=== PATIENT | male | born 1975 | race Caucasian/White ===

== ENCOUNTER 2019-07-22 10:18 | Emergency (ER) | payer BC ==
--- OUTSIDE RECORDS SUMMARY | 2019-07-22 10:34 | XMS REPORT | Continuity of Care Document ---
:1975 Author Organization [facility] Care Team Providers Name Role Phone [facility] Unavailable Un available Problems Problem Status Onset Classification Date Comments Sourc e Date Reported Headache Active Problem 05/09/2019 Mischer (finding) Neuro Neck pain Active Problem 05/09/2019 [facility] (finding) Neuro Dizziness Active Problem 10/29/2018 [facility] (finding) Neuro Cervical Active Problem 05/09/2019 [facility] radiculopathy Neuro (disorder) Cervical Active Problem 05/09/2019 [facility] spondylosis Neuro (disorder) Medications Medication Details Route Status Patient Ordering Order Source Instructions Provider Date amitriptyline 10 mg 20 mg = 2 Active Mi allie oral tablet tab, PO, 020 Neuro Bedtime, # 60 tab, 2 Refill(s) , Pharmacy: [id number] tizanidine 2 MG 4 mg = 2 Active Mischer Oral Capsule cap, PO, 019 Neuro [Zanaflex] Bedtime, # 60 cap, 3 Refill(s) , Pharmacy: [id number] montelukast PRN, 0 Active Mischer Refill(s) 019 Neuro Zolpidem tartrate 5 5 mg = 1 Inactive Mi allie MG Oral Tablet tab, PO, 019 Neuro [Ambien] Bedtime, PRN for sleep, 0 Refill(s) meloxicam 15 mg 15 mg = 1 Inactive Misch er oral tablet tab, PO, 019 Neuro Daily, # 30 tab, 0 Refill(s) vortioxetine 20 MG 20 mg = 1 Inactive Mi allie Oral Tablet tab, PO, 019 Neuro [Trintellix] Daily, 0 Refill(s) 24 HR Amphetamine 30 mg = 1 Inactive Mis ginette aspartate 7.5 MG / cap, PO, 019 Neur o Amphetamine Sulfate Daily, # 7.5 MG / 30 cap, 0 Dextroamphetamine Refill(s) saccharate 7.5 MG / Dextroamphetamine Sulfate 7.5 MG Extended Release Capsule [Adderall] gabapentin 300 MG 300 mg = Inactive Misc her Oral Capsule 1 cap, 019 Neuro PO, TID, 0 Refill(s) QUEtiapine 300 mg 300 mg = Inactive Misc her oral tablet 1 tab, 019 Neuro PO, Bedtime, # 30 tab, 0 Refill(s) Prilosec PO, Active Mischer Daily, 0 019 Neuro Refill(s) montelukast Daily, 0 Active Mischer Refill(s) 019 Neuro Flora PO, 0 Active Mischer Refill(s) 019 Neuro Allergies, Adverse Reactions, Alerts Substance Category Reaction Severity Reaction Status Date Comments S ource type Reported No Known Assertion Drug Misch er Medication allergy Neuro Allergies Immunizations No Data Provided for This Section Results No Data Provided for This Section Pathology Reports No Data Provided for This Section Diagnostic Reports No Data Provided for This Section Consultation Notes No Data Provided for This Section Discharge Summaries No Data Provided for This Section History and Physicals No Data Provided for This Section Vital Signs Vital Sign Value Date Comments Source Systolic (mm Hg) 123 [facility]04[facility] Diastolic (mm Hg) 82 03/04/2019 [facility] Ne uro Heart Rate 78 03/04/2019 [facility] Neuro Respitory Rate 16 03/04/2019 [facility] Neuro Height 165.1 cm 03/04/2019 [facility] Neuro Weight 75.455 03/04/2019 [facility] Neuro BMI Calculated 27.68 03/04/2019 [facility] Neuro Systolic (mm Hg) 130 01/14/2019 [facility] Rita ro Diastolic (mm Hg) 84 01/14/2019 [facility] Ne uro Heart Rate 67 01/14/2019 [facility] Respitory Rate 16 01/14/2019 [facility] Neuro Height 167.64 cm 01/14/2019 [facility] Neuro Weight 75.455 01/14/2019 [facility] Neuro BMI Calculated 26.85 01/14/2019 [facility] Neuro Systolic (mm Hg) 118 12/14/2018 [facility] Rita ro Diastolic (mm Hg) 81 [facility] 83 12/14/2018 [facility] Neuro Respitory Rate 16 12/14/2018 [facility] Neuro Height 167.64 cm 12/14/2018 [facility] Neuro Weight 75.455 [facility]14[facility] BMI Calculated 26.85 12/14/2018 [facility] Neuro Systolic (mm Hg) 153 10/26/2018 [facility] Rita ro Diastolic (mm Hg) 89 10/26/2018 [facility] Ne uro Height 167.64 cm 10/26/2018 [facility] Neuro Weight 73.636 10/26/2018 [facility] Neuro BMI Calculated 26.2 10/26/2018 [facility] Neuro Encounters Location Location Encounter Encounter Reason Attending ADM SC Stat us Source Details Type Number For Provider Date Date Visit Outpatient [id number] Antonio 10/26 Active [facility] [place] [facility] Outpatient [id number] Antonio 10/26 10/27 [facility] Neurology Kre Neuro [place] Outpatient [id number] Antonio 11/25 Active [facility] [place] MNA Ambulatory [id number] Antonio 11/25 11/25 [facility] Neurology Pre-Reg Kre Neuro [place] Outpatient [id number] Antonio 12/14 Active [facility] [place] MNA Outpatient [id number] Antonio 12/14 12/15 [facility] Neurology Krell /2018 Neuro [place] Outpatient [id number] Antonio 01/14 Active [facility] [place] MNA Outpatient [id number] Coy 01/14 01/15 [facility] Neurology Hirsch Neuro [place] Outpatient [id number] Antonio 03/04 Active [facility] /2019 [place] MNA Outpatient [id number] Antonio 03/04 03/05 [facility] Neurology Kre /2019 Neuro [place] Outpatient [id number] Antonio 05/05 Active [facility] [place] MNA Outpatient [id number] Coy 05/05 05/06 [facility] Neurology Hirsch Neuro [place] Procedures No Data Provided for This Section Assessment and Plan No Data Provided for This Section Plan of Care No Data Provided for This Section Social History Social History Date Source Social History TypeResponse 10/26/2018 [facility] Neur o Alcohol Current, Type Beer. Frequency: 1-2 times per week. Smoking Status Never smoker; Exposure to Tobacco Smoke None; Cigarette Smoking Last 365 Days No; Reg Smoking Cessation Counseling No entered on: 05/06/19 Family History No Data Provided for This Section Advance Directives No Data Provided for This Section Functional Status No Data Provided for This Section
--- OUTSIDE RECORDS SUMMARY | 2019-07-22 10:34 | XMS REPORT | Summary of Care ---
:1975 Author Organization [facility] [place] Address [address] [place] [address]- phone Encounter HQ Luzmariar_ernestina(FIN) [id number] Date(s): 05/06/19 - 05/06/19 [facility] [address] [place] [address]- [phone] Discharge Disposition: Home or Self Care Attending Physician: Antonio Martínez MD Referring Physician: Coy Hirsch MD Vital Signs No data available for this section Problem List Condition Effective Dates Status Health Status Informant Cervical radiculopathy(Confirmed) Active Cervical spondylosis(Confirmed) Active Bad headache(Confirmed) Active Headache(Confirmed) Active Sore neck(Confirmed) Active Allergies, Adverse Reactions, Alerts No Known Medication Allergies Medications No Known Medications Results No data available for this section Immunizations No data available for this section Procedures No data available for this section Social History Social History Type Response Alcohol Current, Type Beer. Frequen cy: 1-2 times per week. Smoking Status Never smoker; Exposure to To bacco Smoke None; Cigarette Smoking Last 365 Days No; Reg Smoking Cessation Counseling No entered on: 05/06/19 Assessment and Plan No data available for this section
--- OUTSIDE RECORDS SUMMARY | 2019-07-22 10:35 | XMS REPORT | Continuity of Care Document ---
:1975 Author Organization [facility] t Address [address] [place] [address] Care Team Providers Name Role Phone Sai Martínez Attending Clinician Problems Condition Condition Condition Status Onset Resolution Last Treating Co mments Source Name Details Category Date Date Treatment Clinician Date Headache Problem Active 2019-05-09 Mem oria (finding) 03:08:11 l Headache Marko n (finding) Active Problem 05/09/2019 [facility] Neuro Neck pain Problem Active 2019-05-09 Me moria (finding) 03:08:11 l Neck [place] pain (finding) Active Problem 05/09/2019 [facility] Neuro Dizziness Problem Active 2018-10-29 Me moria (finding) 00:31:48 l [place] Dizziness (finding) Active Problem 10/29/2018 [facility] Neuro Cervical Problem Active 2019-05-09 Mem oria radiculopa 03:08:11 l thy Cervical Marko n (disorder) radiculopa thy (disorder) Active Problem 05/09/2019 [facility] Neuro Cervical Problem Active 2019-05-09 Mem oria spondylosi 03:08:11 l s Cervical Marko n (disorder) spondylosi s (disorder) Active Problem 05/09/2019 [facility] Neuro Allergies, Adverse Reactions, Alerts Allergy Allergy Status Severity Reaction(s) Onset Inactive Treating Comm ents Source Name Type Date Date Clinician No Known No Known Active Memori a Medicati Medicati l on on [place] Allergcarmen Allergcarmen s s Social History Social Habit Start Date Stop Date Quantity Comments Source Social History 2018-10-26 2018-10-26 Jeremiah manuel 19:07:18 19:07:18 Medications Ordered Filled Start Stop Current Ordering Indication Dosage Frequency Signature Comments Components Source Medication Medication Date Date Medication? Clinician (SIG) Name Name amitriptyli Yes 20 mg = 2 M emoria ne 10 mg 1-24 tab, PO, l oral tablet 22:12: Bedtime, # [place] 00 60 tab, 2 Refill(s), Pharmacy: [id number] tizanidine 2018-02 Yes 4 mg = 2 Mem oria 2 MG Oral 1-06 cap, PO, l Capsule 00:36: Bedtime, # Herm lucero [Zanaflex] 00 60 cap, 3 Refill(s), Pharmacy: [id number] montelukast 2018-02 Yes PRN, 0 Tutu daniel 1-05 Refill(s) l 19:42: [place] 00 Zolpidem 2018-02 No 5 mg = 1 Memor ia tartrate 5 0-17 tab, PO, l MG Oral 20:02: Bedtime, Marko n Tablet 00 PRN for [Ambien] sleep, 0 Refill(s) meloxicam 2018-02 No 15 mg = 1 Mem oria 15 mg oral 0-17 tab, PO, l tablet 20:02: Daily, # [place] 00 30 tab, 0 Refill(s) vortioxetin 2018-02 No 20 mg = 1 M emoria e 20 MG 0-17 tab, PO, l Oral Tablet 20:02: Daily, 0 He rmann [Trintellix 00 Refill(s) ] 24 HR 2018-02 No 30 mg = 1 Memoria Amphetamine 0-17 cap, PO, l aspartate 20:02: Daily, # Herm lucero 7.5 MG / 00 30 cap, 0 Amphetamine Refill(s) Sulfate 7.5 MG / Dextroamphe tamine saccharate 7.5 MG / Dextroamphe tamine Sulfate 7.5 MG Extended Release Capsule [Adderall] gabapentin 2018-02 No 300 mg = 1 M emoria 300 MG Oral 0-17 cap, PO, l Capsule 20:02: TID, 0 [place] 00 Refill(s) QUEtiapine 2018-02 No 300 mg = 1 M emoria 300 mg oral 0-17 tab, PO, l tablet 20:02: Bedtime, # Rachel nn 00 30 tab, 0 Refill(s) Prilosec Yes PO, Daily, Mem oria 9-17 0 l 19:08: Refill(s) [place] 00 montelukast 2019-0 Yes Daily, 0 Me moria 9-17 Refill(s) l 19:08: [place] 00 Flora 2019-0 Yes PO, 0 Memoria 9-17 Refill(s) l 19:08: [place] 00 Vital Signs Vital Name Observation Time Observation Value Comments Source Systolic (mm Hg) 2019-03-04 21:42:00 Tutu rial [place] Diastolic (mm Hg) 2019-03-04 21:42:00 Mem orial [place] Heart Rate 2019-03-04 21:42:00 [facility] [place] Respitory Rate 2019-03-04 21:42:00 Memori al [place] Height 2019-03-04 21:42:00 165.1 cm [facility] [place] Weight 2019-03-04 21:42:00 [facility] [place] BMI Calculated 2019-03-04 21:42:00 Memori al [place] Systolic (mm Hg) 2019-01-14 21:56:00 Tutu rial [place] Diastolic (mm Hg) 2019-01-14 21:56:00 Mem orial [place] Heart Rate 2019-01-14 21:56:00 [facility] [place] Respitory Rate 2019-01-14 21:56:00 Memori al [place] Height 2019-01-14 21:56:00 167.64 cm [facility] [place] Weight 2019-01-14 21:56:00 [facility] [place] BMI Calculated 2019-01-14 21:56:00 Memori al [place] Systolic (mm Hg) 2018-12-14 19:15:00 Tutu rial [place] Diastolic (mm Hg) 2018-12-14 19:15:00 Mem orial [place] Heart Rate 2018-12-14 19:15:00 [facility] [place] Respitory Rate 2018-12-14 19:15:00 Memori al [place] Height 2018-12-14 19:15:00 167.64 cm [facility] [place] Weight 2018-12-14 19:15:00 [facility] [place] BMI Calculated 2018-12-14 19:15:00 Memori al [place] Systolic (mm Hg) 2018-10-26 19:02:00 Tutu rial [place] Diastolic (mm Hg) 2018-10-26 19:02:00 Mem orial [place] Height 2018-10-26 19:02:00 167.64 cm [facility] [place] Weight 2018-10-26 19:02:00 [facility] BMI Calculated 2018-10-26 19:02:00 Daphnie Mcfarland Procedures This patient has no known procedures. Encounters Start End Encounter Admission Attending Care Care Encounter Source Date/Time Date/Time Type Type Clinicians Facility Department ID 2019-05-06 2019-05-06 Outpatient Tanya MHMISCHER MHMISCHER [id number] 15:30:00 23:59:59 Antonio 05 Sai 2019-03-04 2019-03-04 Outpatient Tanya MISCHER MHMISCHER [id number] 15:30:00 23:59:59 Antonio 04 Sai 2019-01-14 2019-01-14 Outpatient Tanya MHMISCHER MHMISCHER [id number] 16:00:00 23:59:59 Antonio 03 Sai 2018-12-14 2018-12-14 Outpatient Tanya MHMISCHER MHMISCHER [id number] 13:00:00 23:59:59 Antonio 02 Sai 2018-11-25 2018-11-25 Outpatient Tanya MISCHER MHMISCHER [id number] 15:30:00 15:30:00 Antnoio Sai 2018-10-26 2018-10-26 Outpatient Tanya MHMISCHER MHMISCHER [id number] 15:00:00 23:59:59 Antonio 00 Sai Results This patient has no known results.
[2019-07-22] MEDS ORDERED: MECLIZINE HCL 12.5 MG TAB ONE (11:44)
[2019-07-22 12:03] LABS: Absolute Lymphocytes (CBC) 1.2 K/uL (0.7-4.9); Basophils % 0.4 % (0-1.3); Hematocrit 44.5 % (39.6-49.0); Lymphocytes % 16.4 % (15.3-44.8); MPV 10.4 fL (7.6-11.3); RBC Red Blood Cell Count 5.02 M/uL (4.33-5.43)
[2019-07-22 12:25] LABS: ALT/SGPT 42 U/L (12-78); AST/SGOT 18 U/L (15-37); Alkaline Phosphatase 91 U/L (45-117); BUN Blood Urea Nitrogen 11 mg/dL (7-18); Bicarbonate 25 mmol/L (21-32); Bilirubin Direct 0.1 mg/dL (0-0.2); Bilirubin Total 0.5 mg/dL (0.2-1.0); Glucose Level 99 mg/dL (74-106); Magnesium 2.3 mg/dL (1.8-2.4); NT PRO-BNP 55 pg/mL (<125); Protein, Total 7.4 g/dL (6.4-8.2); Sodium Level 140 mmol/L (136-145); Troponin (Emerg Dept Use Only) < 0.02 ng/mL (0.0-0.045)
--- NOTE | 2019-07-22 13:10 | EDPHYS ---
Physician Documentation [facility] Name: Luis Neal Age: 43 yrs Sex: Male : 1975 Arrival Date: 07/22/2019 Time: 10:20 Bed 19 Private MD: Rogelio Hirsch C ED Physician Zakiya Mcduffie HPI: 07/21 12:13 This 43 yrs old Male presents to ER via Ambulatory with complaints of ma2 Dizziness, Lightheaded. 12:13 The patient presents with dizziness. Onset: The symptoms/episode began/occurred ma2 gradually, 1 day(s) ago. Associated signs and symptoms: Pertinent negatives: ataxia, chest pain, diaphoresis, seizure. Severity of symptoms: At their worst the symptoms were moderate in the emergency department the symptoms are unchanged. The patient has not experienced similar symptoms in the past. had normal brain MRI in few months . Historical: - Allergies: 10:48 No Known Allergies; ca1 - Home Meds: 10:48 montelukast oral oral [Active]; ca1 - PMHx: 10:48 None; ca1 - PSHx: 10:48 None; ca1 - Immunization history:: Adult Immunizations up to date. - Social history:: Smoking status: Patient denies any tobacco usage or history of. Patient/guardian denies using alcohol, street drugs, The patient lives with spouse. - Family history:: not pertinent. ROS: 12:13 Constitutional: Negative for fever, chills, and weight loss. ma2 12:13 All other systems are negative. Exam: 12:13 Constitutional: This is a well developed, well nourished patient who is awake, alert, ma2 and in no acute distress. Head/Face: Normocephalic, atraumatic. Eyes: Pupils equal round and reactive to light, extra-ocular motions intact. Lids and lashes normal. Conjunctiva and sclera are non-icteric and not injected. Cornea within normal limits. Periorbital areas with no swelling, redness, or edema. ENT: Nares patent. No nasal discharge, no septal abnormalities noted. Tympanic membranes are normal and external auditory canals are clear. Oropharynx with no redness, swelling, or masses, exudates, or evidence of obstruction, uvula midline. Mucous membranes moist. Neck: Trachea midline, no thyromegaly or masses palpated, and no cervical lymphadenopathy. Supple, full range of motion without nuchal rigidity, or vertebral point tenderness. No Meningismus. Chest/axilla: Normal chest wall appearance and motion. Nontender with no deformity. No lesions are appreciated. Cardiovascular: Regular rate and rhythm with a normal S1 and S2. No gallops, murmurs, or rubs. Normal PMI, no JVD. No pulse deficits. Respiratory: Lungs have equal breath sounds bilaterally, clear to auscultation and percussion. No rales, rhonchi or wheezes noted. No increased work of breathing, no retractions or nasal flaring. Abdomen/GI: Soft, non-tender, with normal bowel sounds. No distension or tympany. No guarding or rebound. No evidence of tenderness throughout. Neuro: Awake and alert, GCS 15, oriented to person, place, time, and situation. Cranial nerves II-XII grossly intact. Motor strength 5/5 in all extremities. Sensory grossly intact. Cerebellar exam normal. Normal gait. Vital Signs: 10:43 BP 151 / 92; Pulse 79; Resp 16 S; Temp 98.2(TE); Pulse Ox 99% on R/A; Weight 73.48 kg ca1 (R); Height 5 ft. 6 in. (167.64 cm) (R); Pain 2/10; 11:33 BP 132 / 87; Pulse 73; Resp 16; Pulse Ox 97% ; bp 11:53 BP 131 / 83; Pulse 66; Resp 16; Pulse Ox 97% ; bp 12:44 BP 125 / 86; Pulse 66; Resp 17; Pulse Ox 98% ; bp 13:23 BP 125 / 86; Pulse 69; Resp 17; Pulse Ox 100% ; bp 10:43 Body Mass Index 26.15 (73.48 kg, 167.64 cm) ca1 MDM: 10:56 Patient medically screened. ma2 12:13 Differential diagnosis: hypovolemia, idiopathic dizziness, near-syncope, vertigo. Data ma2 reviewed: vital signs, nurses notes. Counseling: I had a detailed discussion with the patient and/or guardian regarding: the historical points, exam findings, and any diagnostic results supporting the discharge/admit diagnosis, the presence of at least one elevated blood pressure reading (>120/80) during this emergency department visit, the need for outpatient follow up. Response to treatment: the patient's symptoms have markedly improved after treatment, ptn declined ivf or iv meds. 07/21 11:32 Order name: Basic Metabolic Panel [facility] 07/21 11:32 Order name: CBC with Diff ga2 07/21 11:32 Order name: LFT's; Complete Time: 12:43 ma2 07/21 11:32 Order name: Magnesium; Complete Time: 12:43 ga2 07/21 11:32 Order name: NT PRO-BNP; Complete Time: 12:43 ga2 07/21 11:32 Order name: PT-INR; Complete Time: 12:43 ga2 07/21 10:48 Order name: EKG; Complete Time: 10:49 [facility] 07/21 10:48 Order name: EKG - Nurse/Tech; Complete Time: 11:00 [facility] 07/21 11:32 Order name: Troponin (emerg Dept Use Only); Complete Time: 12:43 ga2 07/21 11:32 Order name: Cardiac monitoring; Complete Time: 11:32 ga2 07/21 11:32 Order name: IV Saline Lock; Complete Time: 11:48 ga2 07/21 11:33 Order name: Basic Metabolic Panel; Complete Time: 12:43 EDMS 07/21 11:33 Order name: CBC with Automated Diff; Complete Time: 12:43 EDMS 07/21 11:32 Order name: Labs collected and sent; Complete Time: 11:48 ga2 07/21 11:32 Order name: O2 Per Protocol; Complete Time: 11:33 ga2 07/21 11:32 Order name: O2 Sat Monitoring; Complete Time: 11:32 ma2 Administered Medications: 11:40 Drug: Meclizine 50 mg Route: PO; bp 13:24 Follow up: Response: Marked relief of symptoms bp Disposition: 07/22/19 13:09 Discharged to Home. Impression: Dizziness and giddiness. - Condition is Stable. - Discharge Instructions: Dizziness. - Prescriptions for Meclizine 25 mg Oral Tablet - take 1 tablet by ORAL route every 8 hours As needed; 30 tablet. Reglan 10 mg Oral Tablet - take 1 tablet by ORAL route every 6 hours . take 30 minutes before meals and at bedtime; 100 tablet. - Medication Reconciliation Form, Thank You Letter, Antibiotic Education, Prescription Opioid Use form. - Follow up: Private Physician; When: Today; Reason: Recheck today's complaints. Follow up: Antonio Martínez MD; When: As needed; Reason: Continuance of care. Signatures: Dispatcher [employer] Madhav Villar RN RN Zakiya Grajeda MD MD ma2 Chata Hernandez RN RN ca1 Corrections: (The following items were deleted from the chart) 13:25 13:09 07/22/2019 13:09 Discharged to Home. Impression: Dizziness and giddiness. bp Condition is Stable. Prescriptions for Meclizine 25 mg Oral Tablet - take 1 tablet by ORAL route every 8 hours As needed; 30 tablet, Reglan 10 mg Oral Tablet - take 1 tablet by ORAL route every 6 hours . take 30 minutes before meals and at bedtime; 100 tablet. and Forms are Medication Reconciliation Form, Thank You Letter, Antibiotic Education, Prescription Opioid Use. Follow up: Private Physician; When: Today; Reason: Recheck today's complaints. Follow up: Antonio Martínez; When: As needed; Reason: Continuance of care. ga2
--- NOTE | 2019-07-22 13:10 | ER ---
Nurse's Notes [facility] Name: Luis Neal Age: 43 yrs Sex: Male : 1975 Arrival Date: 07/22/2019 Time: 10:20 Bed 19 Private MD: Rogelio Hirsch C Diagnosis: Dizziness and giddiness Presentation: 07/21 10:43 Chief complaint: Patient states: Dizzy spells this morning. Reports dizziness, ca1 lightheadedness, nausea. States, "I got dizzy, I lost my balance, fell but did not loss consciousness and did not hit my head". Right now, a little dizzy and lightheaded, and mild headache. Denies previous episodes of symptoms. Coronavirus screen: Proceed with normal triage. Patient denies a cough. Patient denies shortness of breath or difficulty breathing. Patient denies measured and/or subjective temperature greater than 100.4F prior to today's visit. Patient denies travel on a cruise ship or to a country the [facility] currently lists as an affected area. Patient denies contact with known and/or suspected case of COVID-19. Ebola Screen: Patient negative for fever greater than or equal to 101.5 degrees Fahrenheit, and additional compatible Ebola Virus Disease symptoms Patient denies exposure to infectious person. Patient denies travel to an Ebola-affected area in the 21 days before illness onset. No symptoms or risks identified at this time. Initial Sepsis Screen: Does the patient meet any 2 criteria? No. Patient's initial sepsis screen is negative. Does the patient have a suspected source of infection? No. Patient's initial sepsis screen is negative. Risk Assessment: Do you want to hurt yourself or someone else? Patient reports no desire to harm self or others. Onset of symptoms was July 22, 2019. 10:43 Method Of Arrival: Ambulatory ca1 10:43 Acuity: KARINA 3 ca1 Triage Assessment: 11:00 General: Appears in no apparent distress. comfortable, Behavior is cooperative, bp appropriate for age, anxious. Pain: Denies pain. EENT: No deficits noted. Neuro: Reports dizziness. Cardiovascular: No deficits noted. Respiratory: No deficits noted. GI: No signs and/or symptoms were reported involving the gastrointestinal system. : No signs and/or symptoms were reported regarding the genitourinary system. Derm: No deficits noted. Musculoskeletal: No deficits noted. Historical: - Allergies: 10:48 No Known Allergies; ca1 - Home Meds: 10:48 montelukast oral oral [Active]; ca1 - PMHx: 10:48 None; ca1 - PSHx: 10:48 None; ca1 - Immunization history:: Adult Immunizations up to date. - Social history:: Smoking status: Patient denies any tobacco usage or history of. Patient/guardian denies using alcohol, street drugs, The patient lives with spouse. - Family history:: not pertinent. Screenin:20 Abuse screen: Denies threats or abuse. Denies injuries from another. Nutritional bp screening: No deficits noted. Tuberculosis screening: No symptoms or risk factors identified. Fall Risk None identified. Assessment: 11:00 General: SEE TRIAGE NOTE. bp 11:53 Reassessment: ALL CURRENT ORDERS IN PROCESS. NO ACUTE S/S AT THIS TIME. bp 13:23 Reassessment: PT D/C HOME AMBULATORY WITH FAMILY, DX WITH DIZZINESS. bp Vital Signs: 10:43 BP 151 / 92; Pulse 79; Resp 16 S; Temp 98.2(TE); Pulse Ox 99% on R/A; Weight 73.48 kg ca1 (R); Height 5 ft. 6 in. (167.64 cm) (R); Pain 2/10; 11:33 BP 132 / 87; Pulse 73; Resp 16; Pulse Ox 97% ; bp 11:53 BP 131 / 83; Pulse 66; Resp 16; Pulse Ox 97% ; bp 12:44 BP 125 / 86; Pulse 66; Resp 17; Pulse Ox 98% ; bp 13:23 BP 125 / 86; Pulse 69; Resp 17; Pulse Ox 100% ; bp 10:43 Body Mass Index 26.15 (73.48 kg, 167.64 cm) ca1 ED Course: 10:20 Patient arrived in ED. ag5 10:20 Rogelio Hirsch MD is Private Physician. ag5 10:47 Triage completed. ca1 10:48 Arm band placed on right wrist. ca1 10:53 Madhav Guerrero, RADHA is Primary Nurse. bp 10:56 Zakiya Mcduffie MD is Attending Physician. ma2 11:20 Patient has correct armband on for positive identification. Bed in low position. Call bp light in reach. Side rails up X2. 11:40 Inserted saline lock: 20 gauge in left forearm, using aseptic technique. Blood bp collected. 12:44 Basic Metabolic Panel Sent. bp 12:44 CBC with Diff Sent. bp 13:09 Antonio Martínez MD is Referral Physician. ma2 13:24 No provider procedures requiring assistance completed. IV discontinued, intact, bp bleeding controlled, No redness/swelling at site. Pressure dressing applied. Administered Medications: 11:40 Drug: Meclizine 50 mg Route: PO; bp 13:24 Follow up: Response: Marked relief of symptoms bp Outcome: 13:09 Discharge ordered by . ma2 13:24 Discharged to home ambulatory, with family. bp 13:24 Condition: stable 13:24 Discharge instructions given to patient, Instructed on discharge instructions, follow up and referral plans. medication usage, Demonstrated understanding of instructions, follow-up care, medications, Prescriptions given X 1. 13:25 Patient left the ED. bp Signatures: Madhav Guerrero RN RN Zakiya Grajeda MD MD ma2 Chata Hernandez RN RN [facility] Charlnie Sampson ag5
[2019-07-22 13:31] VITALS: TEMP 98.2
[2019-07-22 13:35] VITALS: BP 125/86
[2019-07-22 13:37] VITALS: O2SAT 100
== END 2019-07-22 13:25 | disposition home or self-care (01) ==
LOC: ER 10:18
DX: R42 Dizziness and giddiness (principal)
CPT/HCPCS: 36415; 80048; 80076; 83735; 83880; 84484; 85025; 85610; 93005; 99284; J8597

== ENCOUNTER 2019-10-28 06:52 | Emergency (ER) | payer BC, OTHER ==
--- OUTSIDE RECORDS SUMMARY | 2019-10-28 06:55 | XMS REPORT | Continuity of Care Document ---
:1975 [address] [facility] t Address [address] [place] [address] Care Team Providers Name Role Phone Sai Martínez Attending Clinician Problems Condition Condition Condition Status Onset Resolution Last Treating Co mments Source Name Details Category Date Date Treatment Clinician Date Headache Problem Active 2019-09-18 Mem oria (finding) 00:20:24 l Headache Marko n (finding) Active Problem 09/18/2019 [facility] Neck pain Problem Active 2019-09-18 Me moria (finding) 00:20:24 l Neck [place] pain (finding) Active Problem 09/18/2019 [facility] Dizziness Problem Active 2018-10-29 Me moria (finding) 00:31:48 l [place] Dizziness (finding) Active Problem 10/29/2018 [facility] Cervical Problem Active 2019-09-18 Mem [facility] radiculopa 00:20:24 l thy Cervical Marko n (disorder) radiculopa thy (disorder) Active Problem 09/18/2019 [facility] Cervical Problem Active 2019-09-18 Mem [facility] spondylosi 00:20:24 l s Cervical Marko n (disorder) spondylosi s (disorder) Active Problem 09/18/2019 [facility] Vertigo Problem Active 2019-09-18 Tutu daniel (finding) 00:20:24 l Vertigo [place] (finding) Active Problem 09/18/2019 [facility] Allergies, Adverse Reactions, Alerts Allergy Allergy Status Severity Reaction(s) Onset Inactive Treating Comm ents Source Name Type Date Date Clinician No Known No Known Active Memori a Medicati Medicati l on on [place] Allergie Allergie s s Social History Social Habit Start Date Stop Date Quantity Comments Source Social History 2018-10-26 2018-10-26 Jeremiah manuel 19:07:18 19:07:18 Medications Ordered Filled Start Stop Current Ordering Indication Dosage Frequency Signature Comments Components Source Medication Medication Date Date Medication? Clinician (SIG) Name Name { Yes See Memoria (Methylpred 6-17 Instructio l nisolone 4 15:28: ns, PO, Herm lucero MG Oral 00 Take by Tablet mouth as [Medrol]) } directed Pack on label., [Medrol X 6 day, # Dosepak] 21 tab, 0 Refill(s), Pharmacy: [facility] #[id number], 167.64, cm, 07/27/19 9:44:00 CDT, Height, 72.273, kg, 07/27/19 9:44:00 CDT, Weight amitriptyli Yes 20 mg = 2 M emoria ne 10 mg 1-24 tab, PO, l oral tablet 22:12: Bedtime, # [place] 00 60 tab, 2 Refill(s), Pharmacy: [facility] #[id number] tizanidine 2018-02 Yes 4 mg = 2 Mem oria 2 MG Oral 1-06 cap, PO, l Capsule 00:36: Bedtime, # Herm lucero [Zanaflex] 00 60 cap, 3 Refill(s), Pharmacy: [facility] #[id number] montelukast 2018-02 Yes PRN, 0 Tutu daniel 1-05 Refill(s) l 19:42: [place] 00 Zolpidem 2018-02 No 5 mg = 1 Memor ia tartrate 5 0-17 tab, PO, l MG Oral 20:02: Bedtime, Marko n Tablet 00 PRN for [Ambien] sleep, 0 Refill(s) meloxicam 2018-02 No 15 mg = 1 Mem oria 15 mg oral 0-17 tab, PO, l tablet 20:02: Daily, # [place] 00 30 tab, 0 Refill(s) vortioxetin 2018-02 [...] cap, PO, l Capsule 20:02: TID, 0 [place] 00 Refill(s) QUEtiapine 2018-02 No 300 mg = 1 M emoria 300 mg oral 0-17 tab, PO, l tablet 20:02: Bedtime, # Rachel nn 00 30 tab, 0 Refill(s) Prilosec 2019-0 Yes PO, Daily, Mem oria 9-17 0 l 19:08: Refill(s) [place] montelukast 2018-0 Yes Daily, 0 Me moria 9-17 Refill(s) l 19:08: [place] 2019-0 Yes PO, 0 Memoria 9-17 Refill(s) l 19:08: [place] 00 Vital Signs Vital Name Observation Time Observation Value Comments Source Systolic (mm Hg) 2019-09-15 16:51:00 Tutu rial [place] Diastolic (mm Hg) 2019-09-15 16:51:00 [facility] orial [place] Heart Rate 2019-09-15 16:51:00 [facility] [place] Respitory Rate 2019-09-15 16:51:00 Memori al [place] Height 2019-09-15 16:51:00 [facility] Weight 2019-09-15 16:51:00 [facility] BMI Calculated 2019-09-15 16:51:00 Memori al [place] Systolic (mm Hg) 2019-07-27 14:44:00 Tutu rial [place] Diastolic (mm Hg) 2019-07-27 14:44:00 Mem orial [place] Heart Rate 2019-07-27 14:44:00 [facility] [place] Respitory Rate 2019-07-27 14:44:00 Memori al [place] Height 2019-07-27 14:44:00 167.64 [facility] Weight 2019-07-27 14:44:00 [facility] BMI Calculated 2019-07-27 14:44:00 Memori al [place] Systolic (mm Hg) 2019-03-04 21:42:00 Tutu rial [place] Diastolic (mm Hg) 2019-03-04 21:42:00 Mem orial [place] Heart Rate 2019-03-04 21:42:00 [facility] [place] Respitory Rate 2019-03-04 21:42:00 Mem[facility] al [place] Height 2019-03-04 21:42:00 165.1 cm [facility] [place] Weight 2019-03-04 21:42:00 [facility] [place] BMI Calculated 2019-03-04 21:42:00 Memori al [place] Systolic (mm Hg) 2019-01-14 21:56:00 Tutu rial [place] Diastolic (mm Hg) 2019-01-14 21:56:00 Mem orial [place] Heart Rate 2019-01-14 21:56:00 [facility] [place] Respitory Rate 2019-01-14 21:56:00 Mem[facility] al [place] Height 2019-01-14 21:56:00 167.64 cm [facility] [place] Weight 2019-01-14 21:56:00 [facility] [place] BMI Calculated 2019-01-14 21:56:00 Memori al [place] Systolic (mm Hg) 2018-12-14 19:15:00 Tutu rial [place] Diastolic (mm Hg) 2018-12-14 19:15:00 Mem orial [place] Heart Rate 2018-12-14 19:15:00 [facility] [place] Respitory Rate 2018-12-14 19:15:00 Memori al [place] Height 2018-12-14 19:15:00 167.64 cm [facility] [place] Weight 2018-12-14 19:15:00 [facility] [place] BMI Calculated 2018-12-14 19:15:00 Memori al [place] Systolic (mm Hg) 2018-10-26 19:02:00 Tutu rial [place] Diastolic (mm Hg) 2018-10-26 19:02:00 Mem orial [place] Height 2018-10-26 19:02:00 167.64 cm [facility] [place] Weight 2018-10-26 19:02:00 [facility] [place] BMI Calculated 2018-10-26 19:02:00 Memori al [place] Procedures This patient has no known procedures. Encounters Start End Encounter Admission Attending Care Care Encounter Source Date/Time Date/Time Type Type Clinicians Facility Department ID 2019-09-15 2019-09-15 [id number] 11:45:00 23:59:59 Antonio Gibbs 2019-09-15 2019-09-15 Outpatient Tanya, MHMISCHER MHMISCHER [id number] 11:45:00 11:45:00 Antonio 07 Sai 2019-07-27 2019-07-27 Outpatient Tanya, MHMISCHER MHMISCHER [id number] 09:45:00 23:59:59 Antonio Sai 2019-05-06 2019-05-06 Outpatient Tanya, MHMISCHER MHMISCHER [id number] 15:30:00 23:59:59 Antonio Sai 2019-03-04 2019-03-04 Outpatient Tanya, MHMISCHER MHMISCHER [id number] 15:30:00 23:59:59 Antonio 04 Sai 2019-01-14 2019-01-14 Outpatient Tanya, MHMISCHER MHMISCHER [id number] 16:00:00 23:59:59 Antonio 03 Sai 2018-12-14 2018-12-14 Outpatient Marisolbg, MHMISCHER MHMISCHER [id number] 13:00:00 23:59:59 Antonio 02 Sai 2018-11-25 2018-11-25 Outpatient Tanya, MHMISCHER MHMISCHER [id number] 15:30:00 15:30:00 Antonio Sai 2018-10-26 2018-10-26 Outpatient Marisolbg, MHMISCHER MHMISCHER [id number] 15:00:00 23:59:59 Antonio 00 Sai Results This patient has no known results.
--- OUTSIDE RECORDS SUMMARY | 2019-10-28 06:55 | XMS REPORT | Continuity of Care Document ---
:1975 Author Organization [facility] Care Team Providers Name Role Phone [facility] Unavailable Un available Problems Problem Status Onset Classification Date Comments Sourc e Date Reported Headache Active Problem 09/18/2019 [facility] (finding) [facility] Neck pain Active Problem 09/18/2019 [facility] (finding) Neuro Dizziness Active Problem 10/29/2018 [facility] (finding) Neuro Cervical Active Problem 09/18/2019 [facility] radiculopathy Neuro (disorder) Cervical Active Problem 09/18/2019 [facility] spondylosis Neuro (disorder) Vertigo (finding) Active Problem 09/18/2019 [facility] Medications Medication Details Route Status Patient Ordering Order Source Instructions Provider Date {21 See Active [facility] (Methylprednisolone Instructio 020 N euro 4 MG Oral Tablet ns, PO, [Medrol]) } Pack Take by [Medrol Dosepak] mouth as directed on label., X 6 day, # 21 tab, 0 Refill(s), Pharmacy: [facility] #[id number], 167.64, cm, 07/27/19 9:44:00 CDT, Height, 72.273, kg, 07/27/19 9:44:00 CDT, Weight amitriptyline 10 mg 20 mg = 2 Active Mi allie oral tablet tab, PO, 020 Neuro Bedtime, # 60 tab, 2 Refill(s), Pharmacy: [facility] #[id number] tizanidine 2 MG 4 mg = 2 Active [facility] Oral Capsule cap, PO, 019 Neuro [Zanaflex] Bedtime, # 60 cap, 3 Refill(s), Pharmacy: [facility] #[id number] montelukast PRN, 0 Active [facility] Refill(s) [...] [Adderall] gabapentin 300 MG 300 mg = 1 Inactive Mi allie Oral Capsule cap, PO, 019 Neuro TID, 0 Refill(s) QUEtiapine 300 mg 300 mg = 1 Inactive Mi allie oral tablet tab, PO, 019 Neuro Bedtime, # 30 tab, 0 Refill(s) Prilosec PO, Daily, Active [facility] 0 019 Neuro Refill(s) montelukast Daily, 0 [...] Date Comments Source [facility]mm Hg) [facility]) 80 [facility] 71 09[facility]15[facility] Respitory [facility] 16 [facility] Height 167.64 cm [facility]/15[facility] Weight 72.727 [facility]15[facility] BMI Calculated 25.88 09/15/[facility] Systolic (mm Hg) 141 07/27/2019 [facility] Rita ro Diastolic (mm Hg) 73 07/27/2019 [facility] u[facility] Heart Rate 73 07/27/2019 [facility] Respitory Rate 16 07/27/2019 [facility] Height 167.64 cm 07/27/2019 [facility] Weight 72.273 07/27/2019 [facility] BMI Calculated 25.72 07/27/2019 [facility] Systolic (mm Hg) 123 03/04/2019 [facility] Rita ro Diastolic (mm Hg) 82 03/04/2019 [facility]ro Heart Rate 78 03/04/2019 [facility] Respitory Rate 16 03/04/2019 [facility] Height 165.1 cm 03/04/2019 [facility] Weight 75.455 03/04/2019 [facility] BMI Calculated 27.68 03/04/2019 [facility] Systolic (mm Hg) 130 01/14/2019 [facility] Rita ro Diastolic (mm Hg) 84 01/14/2019 [facility] Heart Rate 67 [facility]14[facility] Resp[facility] Rate 16 01/14/2019 [facility] Height 167.64 cm 01/14/2019 [facility] Weight 75.455 01/14/2019 [facility] BMI Calculated 26.85 01/14/2019 [facility] Systolic (mm Hg) 118 12/14/2018 [facility] Rita ro Diastolic (mm Hg) 81 12/14/2018 [facility]ro Heart Rate 83 12/14/2018 [facility] Respitory Rate 16 12/14/2018 [facility] Height 167.64 cm 12/14/2018 [facility] Weight 75.455 [facility]/14/[facility] BMI Calculated 26.85 12/14/2018 [facility] Systolic (mm Hg) 153 10/26/2018 [facility] Rita ro Diastolic (mm Hg) 89 10/26/2018 [facility] Height 167.64 cm [facility]/26/[facility] 73.636 [facility]/26[facility] BMI Calculated 26.2 10/26/2018 [facility] Encounters Location Location Encounter Encounter Reason Attending ADM [place] Stat Source Details Type Number For Provider Date Date Visit Outpatient [id number] Antonio 10/26 [facility] [place] [facility] Outpatient [id number] Antonio 10/26 10/27 [facility] /2018 [facility] [place] Outpatient [id number] Antonio 11/25 [facility] [place] MNA Ambulatory [id number] Antonio 11/25 11/25 [facility] /2018 [facility] [place] Outpatient [id number] Antonio 12/14 [facility] [place] [facility] Out[facility] [id number] Antonio 12/14 12/15 [facility] /2018 [facility] [place] Outpatient [id number] Antonio 01/14 [facility] [place] [facility] Outpatient [id number] Coy 01/14 01/15 [facility] [place] Outpatient [id number] Antonio 03/04 [facility]2020 [place] [facility] Outpatient [id number] Antonio 03/04 03/05 [facility] /2019 [facility] [place] Outpatient [id number] Antonio 05/05 [facility]2019 [place] [facility] Outpatient [id number] Coy 05/05 05/06 [facility] /2019 /2019 [facility] [place] Outpatient [id number] Antonio 07/26 [facility]2019 [place] [facility] Outpatient [id number] Coy 07/26 07/27 [facility] /2019 /2019 [facility] [place] Outpatient [id number] Antonio 09/14 [facility]2020 [place] Outpatient [id number] Antonio 09/14 [facility]2020 [place] [facility] Ambulatory [id number] Coy 09/14 09/14 [facility] /2019 [facility] [place] [facility] Outpatient [id number] Coy 09/14 09/15 [facility] /2019 [facility] [place] Outpatient [id number] Antonio 03/20 [facility] [place] Procedures No Data Provided for This Section Assessment and Plan No Data Provided for This Section Plan of Care No Data Provided for This Section Social History Social History Date Source Social History TypeResponse 10/26/2018 [facility] Alcohol Current, Type Beer. Frequency: 1-2 times per week. Smoking Status Never smoker; Exposure to Tobacco Smoke None; Cigarette Smoking Last 365 Days No; Reg Smoking Cessation Counseling No entered on: 09/15/19 Family History No Data Provided for This Section Advance Directives No Data Provided for This Section Functional Status No Data Provided for This Section
[2019-10-28 07:44] LABS: Absolute Lymphocytes (CBC) 1.3 K/uL (0.7-4.9); Basophils % 0.4 % (0-1.3); Hematocrit 44.7 % (39.6-49.0); Lymphocytes % 17.4 % (15.3-44.8); RBC Red Blood Cell Count 5.04 M/uL (4.33-5.43)
[2019-10-28] MEDS ORDERED: ASPIRIN 81 MG CHEWABLE TABLET ONE (07:44)
[2019-10-28 07:45] LABS: Protime INR 0.95
[2019-10-28 07:59] LABS: ALT/SGPT 56 U/L (12-78); AST/SGOT 21 U/L (15-37); Albumin 4.1 g/dL (3.4-5.0); Alkaline Phosphatase 101 U/L (45-117); BUN Blood Urea Nitrogen 11 mg/dL (7-18); Bicarbonate 28 mmol/L (21-32); Bilirubin Direct < 0.1 mg/dL (0-0.2); Bilirubin Total 0.4 mg/dL (0.2-1.0); Glucose Level 110 mg/dL (74-106); Magnesium 2.3 mg/dL (1.8-2.4); NT PRO-BNP 51 pg/mL (<125); Potassium 4.1 mmol/L (3.5-5.1); Protein, Total 7.8 g/dL (6.4-8.2); Sodium Level 140 mmol/L (136-145); Troponin (Emerg Dept Use Only) < 0.02 ng/mL (0.0-0.045)
--- NOTE | 2019-10-28 08:35 | ER ---
Nurse's Notes [facility] Name: Luis Neal Age: 44 yrs Sex: Male : 1975 Arrival Date: 10/28/2019 Time: 06:53 Bed 5 Private MD: Diagnosis: Chest pain, unspecified Presentation: 10/27 07:15 Chief complaint: Patient states: left sided chest tightness all night, couldn't sleep. iw Ebola Screen: Patient negative for fever greater than or equal to 101.5 degrees Fahrenheit, and additional compatible Ebola Virus Disease symptoms Patient denies exposure to infectious person. Patient denies travel to an Ebola-affected area in the 21 days before illness onset. No symptoms or risks identified at this time. Initial Sepsis Screen: Does the patient meet any 2 criteria? No. Patient's initial sepsis screen is negative. Does the patient have a suspected source of infection? No. Patient's initial sepsis screen is negative. Risk Assessment: Do you want to hurt yourself or someone else? Patient reports no desire to harm self or others. 07:15 Method Of Arrival: Ambulatory iw 07:15 Acuity: KARINA 3 iw 08:58 Coronavirus screen: At this time, the client does not indicate any symptoms associated iw with coronavirus-19. Onset of symptoms was October 27, 2019. Historical: - Allergies: 07:17 No Known Allergies; iw - Home Meds: 07:17 None [Active]; iw - PSHx: 07:17 None; iw Screenin:58 Abuse screen: Denies threats or abuse. Denies injuries from another. Nutritional iw screening: No deficits noted. Tuberculosis screening: No symptoms or risk factors identified. Fall Risk None identified. Assessment: 08:00 General: Appears in no apparent distress. Behavior is calm, cooperative. Pain: iw Complains of pain in anterior aspect of left upper chest. Pain: Pain does not radiate. Pain began 1 day ago. Neuro: Level of Consciousness is awake, alert, obeys commands, Oriented to person, place, time, situation, Moves all extremities. Full function. Cardiovascular: Capillary refill < 3 seconds in bilateral fingers Patient's skin is warm and dry. Respiratory: Respiratory effort is even, unlabored, Respiratory pattern is regular, symmetrical. GI: Abdomen is flat, non-distended. Derm: Skin is intact, is healthy with good turgor. Musculoskeletal: Range of motion: intact in all extremities. Vital Signs: 07:15 BP 147 / 93; Pulse 76; Resp 16 S; Temp 97.9; Pulse Ox 100% on R/A; iw ED Course: 06:53 Patient arrived in ED. cl3 07:11 George Biswas, RN is Primary Nurse. em 07:12 Pratima Bonds FNP-C [facility]. kb 07:12 Francis Jenkins MD is Attending Physician. kb 07:16 Triage completed. iw 07:17 Arm band placed on. iw 07:27 Initial lab(s) drawn, by me, sent to lab. Inserted saline lock: 20 gauge in right em antecubital area, using aseptic technique. Blood collected. Patient maintains SpO2 saturation greater than 95% on room air. 07:48 XRAY Chest (1 view) In Process Unspecified. EDMS 08:58 No provider procedures requiring assistance completed. IV discontinued, intact, iw bleeding controlled, No redness/swelling at site. Pressure dressing applied. Administered Medications: 07:34 Drug: Aspirin Chewable Tablet 324 mg Route: PO; em Outcome: 08:34 Discharge ordered by . kb 08:56 Discharged to home ambulatory. iw 08:56 Condition: good 08:56 Discharge instructions given to patient, Instructed on discharge instructions, follow up and referral plans. Demonstrated understanding of instructions, follow-up care. 08:59 Patient left the ED. iw Signatures: Dispatcher [employer] EDOR Pratima Bonds FNP-C FNP-Ckb Munoz, Edgar, RN RN Socorro Andres RN RN Ricardo Mcdonald cl3
--- NOTE | 2019-10-28 08:35 | EDPHYS ---
Physician Documentation [facility] Name: Luis Neal Age: 44 yrs Sex: Male : 1975 Arrival Date: 10/28/2019 Time: 06:53 Bed 5 Private MD: ED Physician Francis Jenkins HPI: 10/27 08:29 This 44 yrs old Male presents to ER via Ambulatory with complaints of Chest kb Tightness. 08:29 The patient or guardian reports chest pain that is located primarily in the anterior kb chest wall, left. Onset: last night. The pain does not radiate. Associated signs and symptoms: The patient has no apparent associated signs or symptoms. The chest pain is described as tightness. Duration: The patient or guardian reports a single episode, that is still ongoing, but improving. Modifying factors: The symptoms are alleviated by nothing. the symptoms are aggravated by nothing. Severity of pain: At its worst the pain was moderate in the emergency department the pain is unchanged. The patient has not experienced similar symptoms in the past. The patient has not recently seen a physician. Pt reports chest tightness since last night. States he has felt a little anxious. Has had a stress test and worn a holter with normal results. Saw Dr Brambila, Dr Hirsch is PCP. Historical: - Allergies: 07:17 No Known Allergies; iw - Home Meds: 07:17 None [Active]; iw - PSHx: 07:17 None; iw ROS: 08:28 Constitutional: Negative for fever, chills, and weight loss, Neck: Negative for injury, kb pain, and swelling, Respiratory: Negative for shortness of breath, cough, wheezing, and pleuritic chest pain, Abdomen/GI: Negative for abdominal pain, nausea, vomiting, diarrhea, and constipation, Back: Negative for injury and pain, MS/Extremity: Negative for injury and deformity, Skin: Negative for injury, rash, and discoloration, Neuro: Negative for headache, weakness, numbness, tingling, and seizure. 08:28 Cardiovascular: Positive for chest pain, Negative for edema, orthopnea, palpitations, paroxysmal nocturnal dyspnea. Exam: 07:38 Constitutional: This is a well developed, well nourished patient who is awake, alert, kb and in no acute distress. Head/Face: Normocephalic, atraumatic. Chest/axilla: Normal chest wall appearance and motion. Nontender with no deformity. No lesions are appreciated. Cardiovascular: Regular rate and rhythm with a normal S1 and S2. No gallops, murmurs, or rubs. Normal PMI, no JVD. No pulse deficits. Respiratory: Lungs have equal breath sounds bilaterally, clear to auscultation and percussion. No rales, rhonchi or wheezes noted. No increased work of breathing, no retractions or nasal flaring. Abdomen/GI: Soft, non-tender, with normal bowel sounds. No distension or tympany. No guarding or rebound. No evidence of tenderness throughout. Skin: Warm, dry with normal turgor. Normal color with no rashes, no lesions, and no evidence of cellulitis. MS/ Extremity: Pulses equal, no cyanosis. Neurovascular intact. Full, normal range of motion. Neuro: Awake and alert, GCS 15, oriented to person, place, time, and situation. Cranial nerves II-XII grossly intact. Motor strength 5/5 in all extremities. Sensory grossly intact. Cerebellar exam normal. Normal gait. 07:38 ECG was reviewed by the Attending Physician. Vital Signs: 07:15 BP 147 / 93; Pulse 76; Resp 16 S; Temp 97.9; Pulse Ox 100% on R/A; iw MDM: 07:12 Patient medically screened. kb 07:38 Data reviewed: vital signs, nurses notes. Data interpreted: Pulse oximetry: on room air kb is 100 %. Interpretation: normal. 08:29 Counseling: I had a detailed discussion with the patient and/or guardian regarding: the kb historical points, exam findings, and any diagnostic results supporting the discharge/admit diagnosis, lab results, radiology results, the need for outpatient follow up, a family practitioner, to return to the emergency department if symptoms worsen or persist or if there are any questions or concerns that arise at home. 08:33 The patient was given aspirin in the Emergency Department. JULIA Risk Score: TOTAL SCORE kb = 0. ED course: HEART score 0, JULIA score 0. Will discharge with strict return precautions. . 10/27 07:13 Order name: Basic Metabolic Panel; Complete Time: 08:04 kb 10/27 07:13 Order name: CBC with Diff; Complete Time: 07:52 kb 10/27 07:13 Order name: LFT's; Complete Time: 08:04 kb 10/27 07:13 Order name: Magnesium; Complete Time: 08:04 kb 10/27 07:13 Order name: NT PRO-BNP; Complete Time: 08:04 kb 10/27 07:13 Order name: PT-INR; Complete Time: 07:52 kb 10/27 07:13 Order name: Troponin (emerg Dept Use Only); Complete Time: 08:04 kb 10/27 07:13 Order name: XRAY Chest (1 view) kb 10/27 07:13 Order name: Cardiac monitoring; Complete Time: 07:18 kb 10/27 07:13 Order name: EKG - Nurse/Tech; Complete Time: 07:31 kb 10/27 07:13 Order name: IV Saline Lock; Complete Time: 07:31 kb 10/27 07:13 Order name: Labs collected and sent; Complete Time: 07:17 kb 10/27 07:13 Order name: O2 Per Protocol; Complete Time: 07:17 kb 10/27 07:13 Order name: O2 Sat Monitoring; Complete Time: 07:17 kb EC:38 Rate is 77 beats/min. Rhythm is regular. QRS [place] is Normal. [place] interval is normal at kb 132 msec. QRS interval is normal at 76 msec. QT interval is normal at 356 msec. Administered Medications: 07:34 Drug: Aspirin Chewable Tablet 324 mg Route: PO; em Disposition: 10/28/19 08:34 Discharged to Home. Impression: Chest pain, unspecified. - Condition is Stable. - Discharge Instructions: Nonspecific Chest Pain, Ivbf-dr-Ehni. - Medication Reconciliation Form, Thank You Letter, Antibiotic Education, Prescription Opioid Use form. - Follow up: Emergency Department; When: As needed; Reason: Worsening of condition. Follow up: Private Physician; When: 2 - 3 days; Reason: Recheck today's complaints, Continuance of care, Re-evaluation by your physician. Signatures: Dispatcher [employer] Pratima Palacios FNP-C FNP-George Dykes RN RN em Socorro Andres RN RN iw Corrections: (The following items were deleted from the chart) 08:59 08:34 10/28/2019 08:34 Discharged to Home. Impression: Chest pain, unspecified. iw Condition is Stable. Forms are Medication Reconciliation Form, Thank You Letter, Antibiotic Education, Prescription Opioid Use. Follow up: Emergency Department; When: As needed; Reason: Worsening of condition. Follow up: Private Physician; When: 2 - 3 days; Reason: Recheck today's complaints, Continuance of care, Re-evaluation by your physician. kb
--- NOTE | 2019-10-28 09:42 | RAD REPORT ---
EXAM DESCRIPTION: RAD - Chest Single View - 10/28/2019 7:54 am CLINICAL HISTORY: CHEST PAIN COMPARISON: February 2018 TECHNIQUE: AP portable chest image was obtained 10/28/2019 7:54 am . FINDINGS: No focal lung parenchymal process. Interstitial pattern matches comparison. Heart and vasc ulature are normal. No measurable pleural effusion and no pneumothorax. No acute bony abnormality see n. No acute aortic findings suspected. IMPRESSION: No acute cardiopulmonary process. No significant interval change.
[2019-10-28 17:01] VITALS: BP 147/93; TEMP 97.9; O2SAT 100
== END 2019-10-28 08:59 | disposition home or self-care (01) ==
LOC: ER 06:52
DX: R07.9 Chest pain, unspecified (principal)
CPT/HCPCS: 36415; 71045; 80048; 80076; 83735; 83880; 84484; 85025; 85610; 93005; 99284

== ENCOUNTER 2019-11-28 07:21 | Day surgery (SDC) | payer BC, OTHER ==
[2019-11-23 16:33] LABS: Absolute Lymphocytes (CBC) 1.7 K/uL (0.7-4.9); Basophils % 0.6 % (0-1.3); Hematocrit 43.4 % (39.6-49.0); Lymphocytes % 27.7 % (15.3-44.8); MPV 10.3 fL (7.6-11.3); RBC Red Blood Cell Count 4.89 M/uL (4.33-5.43)
[2019-11-23 16:51] LABS: Potassium 4.3 mmol/L (3.5-5.1)
--- OUTSIDE RECORDS SUMMARY | 2019-11-28 07:47 | XMS REPORT | Continuity of Care Document ---
:1975 Author Organization [facility] Care Team Providers Name Role Phone [facility] Unavailable Un available Problems Problem Status Onset [...] day, # 21 tab, 0 Refill(s), Pharmacy: [id number], 167.64, cm, 07/27/19 9:44:00 CDT, Height, 72.273, kg, 07/27/19 9:44:00 CDT, Weight amitriptyline 10 mg 20 mg = 2 Active Mi allie oral tablet tab, PO, 020 Neuro Bedtime, # 60 tab, 2 Refill(s), Pharmacy: [id number] tizanidine 2 MG 4 mg = 2 Active [facility] Oral Capsule cap, PO, 019 Neuro [Zanaflex] Bedtime, # 60 cap, 3 Refill(s), Pharmacy: [id number] montelukast PRN, 0 Active [facility] Refill(s) [...] Comments Source Systolic (mm Hg) 123 [facility] Diastolic (mm Hg) 80 [facility] Heart Rate 71 09/[facility] Respitory Rate 16 09/15/2019 [facility] Height 167.64 cm 09/15/2019 [facility] Weight 72.727 09/15/2019 [facility] BMI Calculated 25.88 09/15/2019 [facility] Systolic (mm Hg) 141 07/27/2019 [facility] [...] [facility] Ne uro Heart Rate 67 01/14/2019 [facility] Respitory Rate 16 01/14/2019 [facility] Height 167.64 cm 01/14/2019 [facility] Weight 75.455 01/14/2019 [facility] BMI Calculated 26.85 01/14/2019 [facility] Systolic (mm Hg) 118 12/14/2018 [facility] [place] ro Diastolic (mm Hg) 81 12/14/2018 [facility] Heart Rate 83 12/14/2018 [facility] Respitory Rate 16 12/14/2018 [facility] Height 167.64 cm 12/14/2018 [facility] Weight 75.455 12/14/2018 [facility] BMI Calculated 26.85 12/14/2018 [facility] Systolic (mm Hg) 153 10/26/2018 [facility] [place] ro Diastolic (mm Hg) 89 10/26/2018 [facility] Height 167.64 cm 10/26/2018 [facility] Weight 73.636 10/26/2018 [facility] BMI Calculated 26.2 10/26/2018 [facility] Neuro Encounters Location Location Encounter Encounter Reason Attending ADM [place] Stat Source Details Type Number For Provider Date Date Visit Outpatient [id number] Antonio 10/26 [facility] Outpatient [id number] Antonio 10/26 10/27 [facility] Neurology [place] /2018 [facility] Outpatient [id number] Antonio 11/25 [facility] Ambulatory [id number] Antonio 11/25 11/25 [facility] [place] /2018 [facility] [place] Outpatient [id number] Antonio 12/14 [facility] [id number] Antonio 12/14 12/15 [facility] [place] /2018 [facility] [place] Outpatient [id number] Antonio 01/14 [facility] [facility] Out[facility] [id number] Coy 01/14 01/15 [facility] [place] Outpatient [id number] Antonio 03/04 [facility] [place] [facility] Outpatient [id number] Antonio 03/04 03/05 [facility] [place] /2019 [facility] [place] Outpatient [id number] Antonio 05/05 [facility]2019 [place] [facility] Outpatient [id number] Coy 05/05 05/06 [facility] /2019 /2019 [facility] [place] Outpatient [id number] Antonio 07/26 [facility] [place] [facility] Outpatient [id number] Coy 07/26 07/27 [facility] /2019 /2019 [facility] [place] Outpatient [id number] Antonio 09/14 [facility]2020 [place] Outpatient [id number] Antonio 09/14 [facility]2020 [place] [facility] Ambulatory [id number] Coy 09/14 09/14 [facility] /2019 [facility] [place] [facility] Outpatient [id number] Coy 09/14 09/15 [facility] /2019 [facility] [place] Outpatient [id number] Antonio 03/20 [facility] Procedures No Data Provided for This Section [...]
--- OUTSIDE RECORDS SUMMARY | 2019-11-28 07:47 | XMS REPORT | Continuity of Care Document ---
:1975 Author Organization [facility] t Address [address] [place] [address] Care Team Providers Name Role Phone Sai [...] Active 2018-10-29 Me moria (finding) 00:31:48 l [place] Dizziness (finding) Active Problem 10/29/2018 [facility] Cervical Problem Active 2019-09-18 Mem o[facility] radiculopa 00:20:24 l thy Cervical Marko n (disorder) radiculopa thy (disorder) Active Problem 09/18/2019 [facility] Cervical Problem Active 2019-09-18 [facility] spondylosi 00:20:24 l s Cervical Marko n (disorder) spondylosi s (disorder) Active Problem 09/18/2019 [facility] Vertigo Problem Active 2019-09-18 Tutu daniel (finding) 00:20:24 l Vertigo [place] (finding) Active Problem 09/18/2019 [facility] Allergies, [...] # Dosepak] 21 tab, 0 Refill(s), Pharmacy: [facility] #[id number], 167.64, cm, 07/27/19 9:44:00 CDT, Height, 72.273, kg, 07/27/19 9:44:00 CDT, Weight amitriptyli Yes 20 mg = 2 M emoria ne 10 mg 1-24 tab, PO, l oral tablet 22:12: Bedtime, # [place] 00 60 tab, 2 Refill(s), Pharmacy: [id number] tizanidine 2018-02 Yes 4 mg = 2 Mem oria 2 MG Oral 1-06 cap, PO, l Capsule 00:36: Bedtime, # Herm lucero [Zanaflex] 00 60 cap, 3 Refill(s), Pharmacy: [id number] montelukast 2018-02 Yes PRN, 0 Tutu daniel 1-05 Refill(s) l 19:42: [place] 00 Zolpidem 2018-02 No 5 mg = 1 Memor ia tartrate 5 0-17 tab, PO, l MG Oral 20:02: Bedtime, Marko n Tablet 00 PRN for [Ambien] sleep, 0 Refill(s) meloxicam 2018-02 No 15 mg = 1 Mem oria 15 mg oral 0-17 tab, PO, l tablet 20:02: Daily, # [place] 00 30 tab, 0 Refill(s) vortioxetin 2018-02 [...] cap, PO, l Capsule 20:02: TID, 0 [place] 00 Refill(s) QUEtiapine 2018-02 No 300 mg = 1 M emoria 300 mg oral 0-17 tab, PO, l tablet 20:02: Bedtime, # Rahcel nn 00 30 tab, 0 Refill(s) Prilosec 2019-0 Yes PO, Daily, Mem oria 9-17 0 l 19:08: Refill(s) [place] montelukast 2018-0 Yes Daily, 0 Me moria 9-17 Refill(s) l 19:08: [place] Flora 2019-0 Yes PO, 0 Memoria 9-17 Refill(s) l 19:08: [place] 00 Vital Signs Vital Name Observation Time Observation Value Comments Source Systolic (mm Hg) 2019-09-15 16:51:00 Tutu rial [place] Diastolic (mm Hg) 2019-09-15 16:51:00 [facility] [place] Heart Rate 2019-09-15 16:51:00 [facility] [place] Respitory Rate 2019-09-15 16:51:00 Memori al [place] Height 2019-09-15 16:51:00 167.64 [facility] Weight 2019-09-15 16:51:00 [facility] BMI Calculated 2019-09-15 16:51:00 Memori al [place] Systolic (mm Hg) 2019-07-27 14:44:00 Tutu rial [place] Diastolic (mm Hg) 2019-07-27 14:44:00 Mem orial [place] Heart Rate 2019-07-27 14:44:00 [facility] [place] Respitory Rate 2019-07-27 14:44:00 [facility] [place] Height 2019-07-27 14:44:00 167.64 cm [facility] Weight 2019-07-27 14:44:00 [facility] BMI Calculated 2019-07-27 14:44:00 Memori al [place] Systolic (mm Hg) 2019-03-04 21:42:00 Tutu rial [place] Diastolic (mm Hg) 2019-03-04 21:42:00 Mem orial [place] Heart Rate 2019-03-04 21:42:00 [facility] [place] Respitory Rate 2019-03-04 21:42:00 Memori al [place] Height 2019-03-04 21:42:00 165.1 cm [facility] [place] Weight 2019-03-04 21:42:00 [facility] [place] BMI Calculated 2019-03-04 21:42:00 Mem[facility] [place] Systolic (mm Hg) 2019-01-14 21:56:00 Tutu rial [place] Diastolic (mm Hg) 2019-01-14 21:56:00 Mem orial [place] Heart Rate 2019-01-14 21:56:00 [facility] [place] Respitory Rate 2019-01-14 21:56:00 [facility] [place] Height 2019-01-14 21:56:00 167.64 cm [facility] [place] Weight 2019-01-14 21:56:00 [facility] [place] BMI Calculated 2019-01-14 21:56:00 [facility] [place] Systolic (mm Hg) 2018-12-14 19:15:00 Tutu rial [place] Diastolic (mm Hg) 2018-12-14 19:15:00 Mem orial [place] Heart Rate 2018-12-14 19:15:00 [facility] [place] Respitory Rate 2018-12-14 19:15:00 Memori al [place] Height 2018-12-14 19:15:00 167.64 cm [facility] [place] Weight 2018-12-14 19:15:00 [facility] [place] BMI Calculated 2018-12-14 19:15:00 [facility] [place] Systolic (mm Hg) 2018-10-26 19:02:00 Tutu rial [place] Diastolic (mm Hg) 2018-10-26 19:02:00 Mem orial [place] Height 2018-10-26 19:02:00 167.64 cm [facility] [place] Weight 2018-10-26 19:02:00 [facility] [place] BMI Calculated 2018-10-26 19:02:00 Memori al [place] Procedures This patient has no known procedures. Encounters Start End Encounter Admission Attending Care Care Encounter Source Date/Time Date/Time Type Type Clinicians Facility Department ID 2019-09-15 2019-09-15 [id number] 11:45:00 23:59:59 Antonio Gibbs 2019-09-15 2019-09-15 Outpatient Tanya, M[facility]ISCHER M[facility]ISCHER [id number] 11:45:00 11:45:00 Antonio 07 Sai 2019-07-27 2019-07-27 Outpatient Tanya, MHMISCHER MHMISCHER [id number] 09:45:00 23:59:59 Antonio Sai 2019-05-06 2019-05-06 Outpatient Tanya, MHMISCHER MHMISCHER [id number] 15:30:00 23:59:59 Antonio Sai 2019-03-04 2019-03-04 Outpatient Tanya, MHMISCHER MHMISCHER [id number] 15:30:00 23:59:59 Antonio 04 Sai 2019-01-14 2019-01-14 Outpatient Tanya, MHMISCHER MHMISCHER [id number] 16:00:00 23:59:59 Antonio 03 Sai 2018-12-14 2018-12-14 Outpatient Marisolbg, MHMISCHER MHMISCHER [id number] 13:00:00 23:59:59 Antonio 02 Sai 2018-11-25 2018-11-25 Outpatient Tanya, MHMISCHER MHMISCHER [id number] 15:30:00 15:30:00 Antonio Sai 2018-10-26 2018-10-26 Outpatient Marisolbg, MHMISCHER MHMISCHER [id number] 15:00:00 23:59:59 Antonio 00 Sai Results This patient has no known results.
[2019-11-28] MEDS ORDERED: FENTANYL CITR 250 MCG/5 ML ONE (08:03)
[2019-11-28] MEDS ORDERED: propofoL 200 MG/20 ML VIAL IV ONE (08:03)
[2019-11-28] MEDS ORDERED: LIDOCAINE 2% MPF 5 ML VIAL ONE (08:03)
[2019-11-28] MEDS ORDERED: MIDAZOLAM HCL 2 MG/2 ML INJ ONE (08:03)
[2019-11-28] MEDS ORDERED: ROCURONIUM 50 MG/5 ML VIAL IV ONE (08:04)
[2019-11-28] MEDS ORDERED: dexAMETHasone 4 MG/ML VIAL ONE (08:04)
[2019-11-28] MEDS ORDERED: Ringers Lactate 1,000 ML IV ONE (08:14)
[2019-11-28] MEDS ORDERED: CEFAZOLIN/SWI 1gm 1 GM/10 ML SYR ONE (08:37)
--- NOTE | 2019-11-28 09:55 | P.BOP ---
Preoperative diagnosis: tender right inguinal and umbilical hernia Postoperative diagnosis: same Primary procedure: 1. Laparoscopic repair of tender right inguinal with mesh Secondary procedure: 2. open repair of umbilical hernia Conveyor Tender: SERGEY LOREDO (JUNIOR MECHANICAL ENGINEER) Estimated blood loss: <10cc Specimen: none Findings: as above Anesthesia: General Complications: None
[2019-11-28] MEDS ORDERED: KETOROLAC 30 MG/ML INJ ONE (10:02)
[2019-11-28] MEDS: HYDROMORPHONE HCL 1 MG/ML INJ ONE ×3 (10:17→10:22)
[2019-11-28 10:24] VITALS: TEMP 97.3
[2019-11-28] MEDS ORDERED: ONDANSETRON 4 MG/2 ML VIAL ONE (10:30)
[2019-11-28] MEDS ORDERED: CODEINE 30MG/APAP 300MG TAB PO ONE (10:55)
[2019-11-28] MEDS ORDERED: CODEINE 30MG/APAP 300MG TAB ONE (11:10)
[2019-11-28] MEDS ORDERED: TAMSULOSIN 0.4 MG SR CAP PO ONE ×2 (11:19→12:00)
[2019-11-28 11:24] VITALS: BP 141/89; O2SAT 95
--- NOTE | 2019-11-28 14:28 | OP ---
Date of Procedure: 11/28/2019 Surgeon: Min Santamaria MD Investigative Shopper: TEDDY Keane. Preoperative Diagnosis: Tender right inguinal hernia and umbilical hernia. Postoperative Diagnosis: Tender right inguinal hernia and umbilical hernia. Procedures: 1.Laparoscopic repair of tender right inguinal hernia with mesh. 2.Open repair of umbilical hernia. Estimated Blood Loss: Less than 10 mL. Specimen: None. Findings: As above. Anesthesia: General plus local. Implant: A medium mesh 3D size on the right inguinal region. Indications: This is the case of a 44-year-old patient with 2 hernias tender, 1 of them repaired. B enefits, alternatives, and risks of repair fully explained, which include, but not limited to infecti on, bleeding, damage to adjacent structures, anesthesia complication, chronic pain, numbness, [place], and even . He also understands the chance of recurrence, also understands we will be using mesh fo r this surgery. Pros and cons of mesh placement were discussed with the patient. All his questions were answered to his satisfaction and he did allow to use of mesh. The patient signed a consent. Procedure In Detail: The patient was brought to the operating room and placed in supine position. A nesthesia was done without complication. Abdominal area was prepped and draped in sterile fashion. The patient was placed in Trendelenburg position. A skin incision was made below the umbilicus. The anterior rectus sheath was opened and muscle retracted laterally to expose the posterior rectus palomino th. The extraperitoneal space was gently developed with blunt dissection and a Spacemaker balloon ti p catheter placed towards the pubic symphysis under direct visualization. The scope was placed. The balloon was inflated under direct visualization and the extraperitoneal space was created. The ball oon was deflated and removed. Then, we insufflated the area. A 5 mm trocar was placed in the area j ust above the pubic symphysis and another 1 longterm between the first and second one. The preperiton eal space was further developed by exposing the inferior epigastric vessels and keeping them anterior . Harry ligament was dissected laterally to the junction with the iliac veins. Dissection continue d inferiorly to the iliopubic tract avoiding damage to the femoral branch of the genitofemoral nerve and lateral femoral cutaneous nerve. The cord structures were carefully skeletonized. The hernia sa c was identified and dissected free from the spermatic cord structures and reduced back into the abdo louis cavity. At that moment, I proceeded to introduce a 3D mesh medium size through the trocar into the working space. It was aligned to cover direct and indirect spaces. The mesh was secured in steve ce lateral and superior to the iliopubic tract and inferomedial to the Harry ligament with the help of the SorbaFix fixation device. We checked the area for any bleeding, no bleeding. The area was in filtrated with local anesthetic and then holding the mesh in place and the hernia sac still reduced i nto the abdominal cavity and under direct visualization, we proceeded to deflate the area. Trocars w ere removed. Anterior rectus sheath was approximated with #1 Vicryl. At that moment, we directed ou r attention to the umbilical region. The patient has an umbilical stalk present. When we dissect th at area, we were able to remove the umbilical sac. Cleaned the fascial edges and this hernia was abl e to close without the use of a mesh. We did that by the help of #1 Vicryl in a tgemot-mu-szoco [facility] ion. The patient tolerated the procedure well. That area was closed with 3-0 chromic and skin was a pproximated with 3-0 chromic in subcuticular fashion. Steri-Strips placed over the area. The patien t tolerated the procedure well. At the end of the case, testicles were within the scrotum. The patient was sent to recovery in stable condition. MAREK/JUN Voice ID: [id number] Report ID: [id number]
--- NOTE | 2019-11-28 14:28 | DS ---
Date of Discharge: 11/28/2019 Diagnosis: Right tender inguinal hernia and umbilical hernia. Procedures: 1.Laparoscopic repair of tender right inguinal hernia with mesh. 2.Open repair of umbilical hernia. Disposition: Home. Activity: As tolerated. No heavy lifting. Plan: Follow up in my office in 1 week. Call for appointment at [phone]. Keep area dry for 48 sandra rs, then may shower. Keep Steri-Strips intact. Medications: Tylenol No. 3 q.4 hours p.r.n. pain, Bactrim DS p.o. b.i.d. MAREK/JUN Voice ID: [id number] Report ID: [id number]
== END 2019-11-28 12:50 | disposition home or self-care (01) ==
LOC: OR 07:21
PROVIDERS: ATTEND Surgery
PROC: 0WQF0ZZ Repair Abdominal Wall, Open Approach (ICD-10-PCS; 2019-11-28)
PROC: 0YU54JZ Supplement Right Inguinal Region with Synthetic Substitute, Percutaneous Endoscopic Approach (ICD-10-PCS; principal; 2019-11-28 09:15)
DX: K40.90 Unilateral inguinal hernia, without obstruction or gangrene, not specified as recurrent (principal); K42.9 Umbilical hernia without obstruction or gangrene; K21.9 Gastro-esophageal reflux disease without esophagitis; Z20.828 Contact with and (suspected) exposure to other viral communicable diseases
CPT/HCPCS: 85025; 80048; 36415; 49650; 49585; U0002; J2704; J1100; J2250; J3010; J1170; J0690; J7120; J2405